=== PATIENT | female | born 1985 | race Hispanic/Latino ===

== ENCOUNTER 2017-06-01 03:24 | Emergency (ER) | payer BC, OTHER ==
--- NOTE | 2017-06-01 03:57 | ED PDOC ---
Upper Extremity Pain/Injury Time Seen by Provider: 06/01/17 03:30 Chief Complaint (Nursing): Finger,Hand,&Wrist Chief Complaint (Provider): Finger injury History Per: Patient Additional Complaint(s): 31 yo female, no PMH, presents to ED with c/o right thumb pain and redness, small "crack" noted. to fingertip pulp. 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 Past Medical History Reviewed: Nursing Documentation, Vital Signs Vital Signs: Last Vital Signs Temp 98.0 F 06/01/17 03:39 Pulse 71 06/01/17 03:39 Resp 16 06/01/17 03:39 BP 126/86 06/01/17 03:39 Pulse Ox 98 06/01/17 03:39 - Medical History PMH: No Chronic Diseases Denies: HIV, Chronic Kidney Disease - Family History Family History: States: Unknown Family Hx - Living Arrangements Living Arrangements: With Family - Social History Current smoker - smoking cessation education provided: No Alcohol: None Drugs: Denies - Home Medications Home Medications: Ambulatory Orders Medication Instructions Recorded Acetaminophen/Codeine NO 2 1 tab PO Q6 PRN #0 tab 06/09/14 [Tylenol/Cod 300 MG-15 MG] LORazepam [Ativan] 0.25 mg PO BID PRN #0 tab 06/09/14 Lactobacillus Acidophilus [Bacid 1 cap PO BID #0 cap 06/09/14 Acidophilus] Witch Cammie [Tucks] 1 pad TP PRN PRN #0 pad 06/09/14 Cephalexin [Keflex] 500 mg PO BID #14 capsule 06/01/17 Ibuprofen [Motrin] 600 mg PO Q6 #20 tab 06/01/17 Mupirocin 2% Cream [Bactroban 30 applic TOP BID #1 tube 06/01/17 Cream] - Allergies Allergies/Adverse Reactions: Allergies Allergy/AdvReac Type Severity Reaction Status Date / Time ciprofloxacin [From Cipro] Allergy Mild VOMITING Verified 06/01/17 03:52 Review of Systems ROS Statement: Except As Marked, All Systems Reviewed And Found Negative Skin: Positive for: Lesions Physical Exam - Reviewed Nursing Documentation Reviewed: Yes Vital Signs Reviewed: Yes - Physical Exam Appears: Positive for: Well, Non-toxic, No Acute Distress Head Exam: Positive for: ATRAUMATIC, NORMAL INSPECTION, NORMOCEPHALIC Skin: Positive for: Normal Color, Warm, DRY Cardiovascular/Chest: Positive for: Regular Rate, Rhythm Respiratory: Positive for: CNT, Normal Breath Sounds Gastrointestinal/Abdominal: Positive for: Normal Exam, Bowel Sounds, Soft Extremity: Positive for: Normal ROM Neurologic/Psych: Positive for: Alert Comments: small 1 cm superficial abrasion noted to right fingertip pulp - ECG O2 Sat by Pulse Oximetry: 98 Medical Decision Making Medical Decision Making: wound care discussed. take medications as directed Disposition - Clinical Impression Clinical Impression: Cracked skin - Patient ED Disposition Is Patient to be Admitted: No - Disposition Disposition: Routine/Home Disposition Time: 13:45 Condition: STABLE Prescriptions: Cephalexin [Keflex] 500 mg PO BID #14 capsule Ibuprofen [Motrin] 600 mg PO Q6 #20 tab Mupirocin 2% Cream [Bactroban Cream] 30 applic TOP BID #1 tube Instructions: Wound Care (DC) Forms: [employer] [facility] (Korean)
[2017-06-01 03:58] VITALS: BP 126/86; PULSE 71; RESP 16; TEMP 98; O2SAT 98
== END 2017-06-01 05:15 | disposition home or self-care (01) ==
LOC: H.ER 03:24
DX: R23.4 Changes in skin texture (principal)